=== PATIENT | male | born 1995 | race Caucasian/White ===

== ENCOUNTER → 2017-12-10 | Outpatient (CLI) | payer OTHER ==
--- NOTE | 2017-12-10 14:10 | Diagnostic Imaging Report ---
INDICATION: Pre-MRI screening. Time of exam 2:20 PM IMPRESSION: No radiopaque orbital foreign body is detected. Dictated by: Dictated on workstation # [id number]
--- NOTE | 2017-12-10 15:12 | Diagnostic Imaging Report ---
EXAMINATION: Magnetic resonance imaging of the right ankle without contrast. DATE: 12/10/2017. COMPARISON: None. HISTORY: 22-year-old male, history of ankle injury with persistent pain. Evaluation for osteochondral lesion of the talar dome. TECHNIQUE: Magnetic Resonance Imaging sequences were performed of the ankle without contrast. [< >] FINDINGS: TENDONS AND LIGAMENTS: The Achilles tendon is unremarkable. There is a small amount of fluid in the tibialis posterior tendon sheath compatible with tenosynovitis. The posterior flexor tendons are otherwise intact. The peroneal tendons - peroneus longus and peroneus brevis - are intact. The anterior extensor tendons - tibialis anterior, extensor hallucis longus and extensor digitorum longus tendons - are intact. The anterior and posterior syndesmotic ligaments are intact. There is a partial tear of the anterior talofibular ligament and also of the calcaneofibular ligament. The posterior talofibular ligament is intact. There is a high-grade partial or near complete tear of the deep deltoid ligament. The plantar fascia is intact. JOINTS: There is a moderate-sized tibiotalar joint effusion. There is no subtalar joint effusion. BONE: There is an osteochondral lesion in the medial talar dome measuring 5 x 9 mm in size with mild depression and irregularity of the articulating surface of the talar dome at this level. There is no underlying cleft of fluid to specifically suggest a loose osteochondral fragment. There is marrow edema in the medial talus at the region of the attachment site of the deep deltoid ligament and also low-level marrow edema in the medial malleolus compatible with areas of bone contusion. There is no identified acute fracture. BURSAE AND SOFT TISSUES: The bursae and soft tissues surrounding the ankle are unremarkable. IMPRESSION: 1. Partial tears of the anterior talofibular ligament and calcaneofibular ligament. 2. Intact syndesmotic ligaments. 3. High grade partial versus near complete tear of the deep deltoid ligament with bone contusions of the medial talus and medial malleolus. 4. Osteochondral lesion of the medial talar dome measuring 5 x 9 mm in size without evidence of loose osteochondral fragment. 5. Moderate size tibiotalar joint effusion. 6. Low-level tenosynovitis of tibialis posterior. No identified tendon tear. Dictated by: Dictated on workstation # [id number]
== END ==
LOC: RAD 13:27
PROVIDERS: ATTEND Nurse Practitioner
DX: S93.431A Sprain of tibiofibular ligament of right ankle, initial encounter (principal); S93.411A Sprain of calcaneofibular ligament of right ankle, initial encounter; S93.421A Sprain of deltoid ligament of right ankle, initial encounter; S90.01XA Contusion of right ankle, initial encounter; M65.9 Synovitis and tenosynovitis, unspecified; M93.271 Osteochondritis dissecans, right ankle and joints of right foot
CPT/HCPCS: 70250; 73721